=== PATIENT | female | born 1995 | race Caucasian/White ===

== ENCOUNTER 2017-06-02 12:05 | Inpatient (IN) | payer OTHER ==
[~2017-06-02] VITALS: Ht 160 cm; Wt 72.0 kg
[2017-06-02] VITALS (14 sets, daily range): BP systolic 106–145; BP diastolic 55–99
[2017-06-02] MEDS ORDERED: PRENTAB9 PO (12:28)
[2017-06-02] MEDS ORDERED: PENICILLIN G POTASSIUM 5 MU VIAL As Ordered ONE (12:50)
[2017-06-02] MEDS ORDERED: PENICILLIN G POTASSIUM IV 5 MU in D5W MINI-BAG PLUS 100 ML IV STA (12:57)
[2017-06-02] MEDS ORDERED: LACTATED RINGER'S 1000 ML IV ONE (13:00)
[2017-06-02] MEDS: LR 1,000 ML IV SCH ×2 (13:12→20:57)
[2017-06-02 13:40] LABS: MEAN CORPUSCULAR HEMOGLOBIN 26.3 pg (27.0-33.0); MEAN CORPUSCULAR HGB CONC 33.4 g/dl (32.0-36.5); MEAN CORPUSCULAR VOLUME 78.9 fl (80.0-96.0); RED CELL DISTRIBUTION WIDTH 14.7 % (11.5-14.5); WHITE BLOOD COUNT 7.7 K/mm3 (4.0-10.0)
[2017-06-02 15:36] LABS: HBSAG L&D POSITIVE (NEGATIVE)
[2017-06-02] MEDS: PENICILLIN G POTASSIUM IV 2.5 MU in D5W 100 ML IV SCH ×2 (17:29→21:00)
[2017-06-02] MEDS ORDERED: OXYTOCIN 30 UNITS IN 0.9% NaCl 500ML IV BAG (J2590) As Ordered ONE (18:33)
[2017-06-02 20:00] LABS: CORD GAS ABE A -3.1; CORD GAS O2 SAT A 20.9 %; CORD GAS PH A 7.327 UNITS; CORD GAS SBC A 19.9 MEQ/L; CORD GAS TCO2 A 24.4 MEQ/L
[2017-06-02 20:02] LABS: CORD GAS ABE V -4.3; CORD GAS HCO3 V 17.9 MEQ/L; CORD GAS O2 SAT V 80.3 %; CORD GAS PCO2 V 26.9 mmHg; CORD GAS PH V 7.44 UNITS; CORD GAS PO2 V 32.1 mmHg; CORD GAS SBC V 20.5 MEQ/L; CORD GAS TCO2 V 18.7 MEQ/L
[2017-06-02 21:27] LABS: ALBUMIN 2.7 GM/DL (3.2-5.2); ALKALINE PHOSPHATASE 182 U/L (45-117); ALT/SGPT 14 U/L (12-78); AST/SGOT 20 U/L (15-37); BILIRUBIN,DIRECT < 0.1 MG/DL (0.0-0.2); BILIRUBIN,TOTAL 0.3 MG/DL (0.2-1.0); TOTAL PROTEIN 5.7 GM/DL (6.4-8.2)
[2017-06-02] MEDS ORDERED: IBUPROFEN 800 MG TAB PO PRN (23:00)
[2017-06-02] MEDS ORDERED: ACETAMINOPHEN 500 MG TAB PO PRN (23:00)
[2017-06-02] MEDS ORDERED: DIBUCAINE 1% OINTMENT 30GM TOP PRN (23:00)
[2017-06-03] MEDS ORDERED: OXYTOCIN INJ 10 UNITS/ML VIAL (J2590) As Ordered ONE (00:15)
[2017-06-03] MEDS ORDERED: OXYTOCIN INJ 10 UNITS/ML VIAL (J2590) IV ONE (00:15)
[2017-06-03] MEDS: PENICILLIN G POTASSIUM IV 2.5 MU in D5W 100 ML IV SCH (01:00)
[2017-06-03] MEDS: LR 1,000 ML IV SCH ×3 (04:57→20:57)
[2017-06-03 05:43] VITALS: BP 103/54
[2017-06-03 07:24] LABS: MEAN CORPUSCULAR HEMOGLOBIN 26.6 pg (27.0-33.0); MEAN CORPUSCULAR HGB CONC 33.5 g/dl (32.0-36.5); MEAN CORPUSCULAR VOLUME 79.4 fl (80.0-96.0); RED CELL DISTRIBUTION WIDTH 14.6 % (11.5-14.5); WHITE BLOOD COUNT 8.6 K/mm3 (4.0-10.0)
[2017-06-03 18:17] VITALS: BP 111/62
--- NOTE | 2017-06-03 21:48 | IPN ---
DATE OF SERVICE: 06/02/2017 This lady and her requested circumcision of their male infant. After discussing the risks and benefits of circumcision, the medical and nonmedical indications, the penile block and aftercare, the patient expressed understanding of penile block and aftercare, signed, witnessed the consent form and we await the clearance by the sheet metal erector.
--- NOTE | 2017-06-03 21:59 | HPE ---
DATE OF ADMISSION: 06/02/2017 This lady is a 22-year-old 2, para 1, last menstrual period (LMP) 08/19/2016, estimated date of confinement (EDC) 06/03/2017 at 40+ weeks of gestation in spontaneous labor. She apparently called the help line at 0800 hours this morning, did not get any response and therefore she came to labor and delivery. Her past history is in October 2014 spontaneous vaginal delivery 39 and 2. She developed a spinal headache, delivered a female 6 pounds 1 ounce, declined epidural at this time. Labs show A positive, HIV negative, hepatitis positive, RPR negative, rubella immune. Varicella immune. Gonorrhea and chlamydia are negative. 1-hour glucose 78. GBS was positive. CF was declined. On examination, the patient is in acute distress. Symphysis fundus height is 39, vertex presenting in the OP position. Category one strip. Pelvic examination, bulging membranes, 5 cm, -2 station, OT. The rest of the examination is unremarkable. She is normocephalic, atraumatic. Neck full range of motion. Pupils equal and reactive to light. Distal pulses are symmetric. No evidence of deep venous thrombosis (DVT), pulmonary embolus (PE) or superficial phlebitis. Reflexes are normal. Lungs are clear bilaterally to bases. No wheezes or rhonchi. No costovertebral angle (CVA) tenderness. She has a largely distended abdomen which is gravid. She is a quite thin lady. Four quadrant bowel sounds are noted and symphysis fundus height is appropriate and the uterus is relaxed. She has no rashes, lesions or pruritus. No arthralgia, myalgia. No complaint of cough, wheezes, shortness of breath or dyspnea on exertion. No chest pain. No bleeding. Neurologically complete. No incontinency, urgency or frequency. No nausea, vomiting, diarrhea or constipation. No diabetic issues. 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 Past medical, surgical and family history noncontributory. She does not smoke, drink, abuse drugs. . There is no domestic violence. Her is a soldier. Our plan of management is to hydrate her, prophylactically cover her for group B Streptococcus (GBS) positive, anticipating at 4 hours in before ruptured membranes. We discussed the risks of baby having to be retained here because of GBS positive if not treated in time and we will discuss the hepatitis B issue after delivery. Blood pressure is 113/59, respirations are 70, pulse 77, temperature is 98.3. Urine is 1.005, pH of 6, +2 leukocytes, trace protein. The rest is negative. In summary, we have a term gestation in active labor. Anticipate spontaneous vaginal delivery.
--- NOTE | 2017-06-03 22:06 | IPN ---
DATE OF SERVICE: 06/02/2017 This patient is hepatitis B positive. We did not recognize it until we rechecked her hepatitis B issue. In following along the algorithm, in fact she has no symptoms. She is delivered. We discussed with her the hepatitis B vaccination of the . We also emphasized that she needs to complete the complete course for the baby and therefore it will be protective as far as baby transmission to hepatitis B. If baby does not get immunized, then there is a 90% chance of vertical transmission. As far as the mother is concerned, at the present time will do baseline liver panel, human papillomavirus (HPV) DNA and hepatitis antigen and anti-HPF, HBG. Will repeat, do as a baseline. The algorithm suggests repeating at 26-28 weeks; however, the patient is delivered and so we will follow along with any symptomatology that she may have. The patient expressed understanding of having the baby washed and having the baby immunized and the risks and benefits to herself. Both parents expressed understanding. We did a half an hour [id number] discussion with educational component.
[2017-06-04] MEDS: LR 1,000 ML IV SCH (04:57)
[2017-06-04 05:24] VITALS: BP 115/60
--- NOTE | 2017-06-04 05:32 | DN ---
DATE OF SERVICE: 06/02/2017 This lady is a 2, para 1 now, at full dilatation with ruptured membranes, delivered spontaneously over intact perineum a live male infant 7 pounds 14 ounces, 3572 grams, scores of 8 and 9 at one and five minutes respectively. Arterial and venous pH were performed. Placenta spontaneously delivered thereafter. Three-vessel and cord membranes and tissues intact. Arterial pH 7.32, base excess -3.1, venous pH 7.44, base excess -4.3. At re-examination, the cervix was complete. Vagina was normal. Lateral dutton normal. Anterior and posterior dutton normal. She had a small blood vessel which is a little bit pumper on the left vaginal wall. This was oversewn with 2-0 Vicryl, J339 to secure hemostasis. The rest of the examination was normal. The patient and baby tolerated procedure well and uterus was well contracted down under Pitocin.
--- NOTE | 2017-06-04 08:26 | IPN ---
DATE: 06/02/2017 22-year-old, 2, now para 2, admitted in spontaneous labor at 40 weeks of gestation. Delivered a live male , 7 pounds 14 ounces (3572 grams). of 8 and 9 at one and five minutes respectively. Arterial pH 7.32, base excess -3.1, venous pH 7.44, base excess -4.3. Her admitting hemoglobin was 11.7, hematocrit 35.0 and platelets are 209. We discussed extensively her hepatitis B positive result in what it means as regards to her breast-feeding as well as immunization for the baby. We lukasz labs for her in order to evaluate her viral load. She has denied knows of any symptoms and has no idea where she would of received her hepatitis B inoculation. On her first day, we discussed phlebitis, cystitis, mastitis, metritis and cellulitis, diet, exercise, pain management, perineal breast and wound care. Her blood pressures this morning is 103/54, respirations 18, pulse 56. Temperature is 98.4. She is not sure what she wants to do for control. We will discuss this at her 6 week checkup. The rest of the examination is unremarkable. She is normocephalic, atraumatic. Neck full range of motion. Pupils equal and reactive to light. Distal pulses symmetric. No evidence of deep venous thrombosis (DVT), pulmonary embolism (PE) or superficial phlebitis. Reflexes are normal. No pedal edema. Lungs are clear bilaterally to bases. No wheezes or rhonchi. No costovertebral angle (CVA) tenderness. Uterus 2 below. Lochia is moderate. Perineum is intact. Bowel sounds are active. She has no rashes, lesions or pruritus. She has no evidence of jaundice. No arthralgia or myalgia. No complaints of right upper quadrant pain. No complaint of cough, wheezes, shortness of breath or dyspnea on exertion. No chest pain. No bleeding. Neuro complete. No frequency, urgency. No nausea, vomiting, diarrhea or constipation. No diabetic issues. Past medical, surgical and family history noncontributory. She does not smoke, drink, abuse drugs. She is . There is no domestic violence. In summary, we have a term gestation that delivered a live male infant. We are awaiting discharge and medications for tomorrow, and patient will have a followup at 6 weeks with Vanessa ROMAN for her check.
[2017-06-04] MEDS ORDERED: ACET50TA PO (09:52)
[2017-06-04] MEDS ORDERED: IBUP-1114 PO (09:52)
[2017-06-13 06:08] LABS: HBsAG SCREEN Negative
== END 2017-06-04 15:01 | disposition home or self-care (01) | DRG 774 ==
LOC: M LDO 12:05 → M LDI 12:56 → M OBS 22:05
PROVIDERS: ADMIT Obstetrics & Gynecology; ATTEND Obstetrics & Gynecology
PROC: 10E0XZZ Delivery of Products of Conception, External Approach (ICD-10-PCS; principal; 2017-06-02)
DX: O99.824 Streptococcus B carrier state complicating childbirth (principal); O98.42 Viral hepatitis complicating childbirth; B18.1 Chronic viral hepatitis B without delta-agent; Z3A.40 40 weeks gestation of pregnancy; Z37.0 Single live birth